=== PATIENT | female | born 1995 | race American Indian/Alaskan Native ===

== ENCOUNTER 2018-12-14 10:18 | Emergency (ER) | payer SELFPAY ==
[2018-12-14] MEDS ORDERED: REGLAN IV ONE (12:21)
[2018-12-14] MEDS ORDERED: D5NS 1,000 ML IV SCH (13:00)
--- NOTE | 2018-12-14 15:00 | Emergency Department Report ---
ED General Adult HPI - General Chief complaint: Nausea/Vomiting/Diarrhea Stated complaint: VOMIT/7WKS /DEHYDRATION Time Seen by Provider: 12/14/18 12:12 Source: patient Mode of arrival: Ambulatory Limitations: No Limitations - History of Present Illness Initial comments: Patient is a 23-year-old female who is approximately 7/2 weeks who is here secondary to 4 days of nausea vomiting. Patient states she can't keep anything down. Patient states she has some mild fatigue and dizziness starting today. Patient states there is no abdominal pain and she denies dysuria vaginal bleeding or vaginal discharge. Associated Symptoms: malaise, nausea/vomiting. denies: confusion, chest pain, cough, diaphoresis, fever/chills, headaches, loss of appetite, rash, seizure, shortness of breath, syncope, weakness - Related Data Previous Rx's Medication Instructions Recorded Last Taken Type Metoclopramide [Reglan] 10 mg PO TID PRN #12 tab 12/14/18 Unknown Rx Allergies Allergy/AdvReac Type Severity Reaction Status Date / Time No Known Allergies Allergy Verified 12/14/18 12:24 ED Review of Systems ROS: Stated complaint: VOMIT/7WKS /DEHYDRATION Other details as noted in HPI Comment: All other systems reviewed and negative ED Past Medical Hx - Past Medical History Previous Medical History?: No - Surgical History Past Surgical History?: No - Social History Smoking Status: Never Smoker Substance Use Type: None - Medications Home Medications: Home Medications Medication Instructions Recorded Confirmed Last Taken Type Metoclopramide [Reglan] 10 mg PO TID PRN #12 tab 12/14/18 Unknown Rx ED Physical Exam - General Limitations: No Limitations General appearance: alert, in no apparent distress - Head Head exam: Present: atraumatic, normocephalic - Eye Eye exam: Present: normal appearance, PERRL, EOMI - ENT ENT exam: Present: mucous membranes moist - Neck Neck exam: Present: normal inspection - Respiratory Respiratory exam: Present: normal lung sounds bilaterally. Absent: respiratory distress, wheezes, rales, rhonchi - Cardiovascular Cardiovascular Exam: Present: regular rate, normal rhythm, normal heart sounds. Absent: systolic murmur, diastolic murmur, rubs, gallop - GI/Abdominal GI/Abdominal exam: Present: soft, normal bowel sounds. Absent: distended, tenderness, guarding, rebound - Extremities Exam Extremities exam: Present: normal inspection - Back Exam Back exam: Present: normal inspection - Neurological Exam Neurological exam: Present: alert, oriented X3 - Psychiatric Psychiatric exam: Present: normal affect, normal mood - Skin Skin exam: Present: warm, dry, intact, normal color. Absent: rash ED Course Vital Signs 12/14/18 10:24 Temperature 98.9 F Pulse Rate 92 H Respiratory 15 Rate Blood Pressure 135/83 [Left] O2 Sat by Pulse 97 Oximetry ED Medical Decision Making - Medical Decision Making She was given antiemetics and hydrated with D5 normal saline. Patient states she is feeling much improved and her nausea has resolved. Patient be discharged home. Critical care attestation.: If time is entered above; I have spent that time in minutes in the direct care of this critically ill patient, excluding procedure time. ED Disposition Clinical Impression: Hyperemesis Disposition: DC-01 TO HOME OR SELFCARE Is pt being admited?: No Does the pt Need Aspirin: No Condition: Stable Instructions: Hyperemesis Gravidarum (ED) Referrals: PRIMARY CARE [Primary Care Provider] - 3-5 Days Time of Disposition: 15:00
[2018-12-14 15:17] VITALS: BP 123/80
== END 2018-12-14 15:15 | disposition home or self-care (01) ==
LOC: ED 10:18
DX: O21.0 Mild hyperemesis gravidarum (principal); O99.283 Endocrine, nutritional and metabolic diseases complicating pregnancy, third trimester; E86.0 Dehydration; Z79.899 Other long term (current) drug therapy; Z3A.01 Less than 8 weeks gestation of pregnancy
CPT/HCPCS: 96361; 96374; 99282; J2765; J7042